=== PATIENT | female | born 1985 ===

== ENCOUNTER 2023-02-08 16:12 | Outpatient (REF) | payer BC, SELFPAY ==
--- NOTE | 2023-02-08 16:00 | PAPFT_PTH ---
PATIENT: Destini Lucas LOC: [facility] U#:[id number] AGE/SX: 38/F ROOM: RE02/08/[address]: Fanny Sauer MD : 1985 BED: DIS: 02/08/2023 SPEC #: [id number] RECD: 02/09/23 12:56 STATUS: HELEN RETerrance #: [id number] RANGEL: 02/08/23 16:[address]: Fanny Sauer DEPT: [facility] Cytology RECD BY: Lita Chapa Tissues: 1 - CX/ENDOCX FOR PAP SMEARS Procedures: PAP THIN PREP/[facility] Screening Comments: [id number] (UNSATISFACTORY FOR EVALUATION)
== END 2023-02-08 16:13 | disposition home or self-care (01) ==
LOC: LBN 16:12
PROVIDERS: Visit Provider Obstetrics & Gynecology
DX: Z12.4 Encounter for screening for malignant neoplasm of cervix (principal)
CPT/HCPCS: 88142

== ENCOUNTER 2023-02-08 18:04 | Outpatient (CLI) | payer BC, SELFPAY ==
[2023-02-08 17:09] LABS: HCT 25.6 % (36.0-46.0); HGB 7.1 g/dL (11.2-15.7); MCHC 27.7 % (32.0-36.0); Platelet Count 416 10^3/uL (130-400); RBC 4.48 10^6/uL (3.93-5.22); RDW-SD 43.6 fL; WBC 8.13 10^3/uL (4.4-10.8)
[2023-02-08 17:30] LABS: MCH 15.8 pg (27.0-33.0); MCV 57 fL (80-95); RDW 22.1 % (11.7-14.6)
== END 2023-02-08 18:05 | disposition home or self-care (01) ==
PROVIDERS: Visit Provider Obstetrics & Gynecology
DX: N92.0 Excessive and frequent menstruation with regular cycle (principal); D64.9 Anemia, unspecified
CPT/HCPCS: 36415; 85027; 84443